=== PATIENT | male | born 1970 | race Two or more races ===

== ENCOUNTER 2025-03-19 18:48 | Emergency (ER) | payer BC, OTHER ==
[~2025-03-19] VITALS: Ht 162.6 cm; Wt 61.1 kg
--- NOTE | 2025-03-19 19:48 | ED.PDOC ---
General HPI Comments 54 year old male came to ER for testicular swelling. Patient states for the past 3 days, he has been having right testicular swelling. Denies any pain or tenderness. Denies any discharge. Denies any urinary symptoms such as dysuria or hematuria. Denies any recent trauma REVIEW OF SYSTEMS: General: No fever, no chills, or fatigue HEENT: No sore throat, no earache, no congestion, no neck pain. Cardiac: No chest pain. No palpitations. Lungs: No shortness of breath, no cough. GI: No nausea, no vomiting, no diarrhea, no constipation, no abdominal pain : No dysuria, frequency, or urgency. No hematuria. (+) right testicular swelling Musculoskeletal: No joint pain , no joint swelling, no extremity edema. Skin: No rash, no itching. Neuro: No headache, no dizziness, no weakness PHYSICAL EXAM: General: Awake, alert and oriented. No acute distress. Skin: Skin in warm, dry and intact without rashes or lesions. HEENT: The head is normocephalic and atraumatic. Conjunctivae are clear without exudates or hemorrhage. Sclera is non-icteric. Neck: Normal range of motion. No JVD. Cardiac: Regular rate Respiratory: No signs of respiratory distress. No Stridor. : Right scrotum indurated, warm, tender. Neurological: The patient is awake, alert and oriented to person, place, and time with normal speech. Speech is clear. Positive facial asymmetry. Normal gait Psychiatric: Appropriate mood and affect. Good judgement and insight. Chief Complaint: Testicle Pain Time Seen by MD: 19:48 Reviewed notes: Nurses Notes Information Source: Patient Mode of Arrival: Ambulatory Severity: Mild Location male: R Scrotum Past Medical History PAST MEDICAL HISTORY: Denies Surgical History: Denies all surgeries Family History Family History: Reviewed,noncontributory to illness Social History Smoker: Non-Smoker Alcohol: Denies ETOH Use Drugs: Denies Drug Use Lives In: Home Was a procedure done? Was a procedure done?: No Differential Diagnosis Kidney stone (Female): N/A Kidney stone (Male): Urolithiasis, Renal infarction, Urinary tract infection Penile/Scrotal: Testicular Torsion, Other Urinary Problem (Male): Epididymitis, Urethritis, Urinary Retention, Urolithiasis, UTI, Other X-Ray, Labs, Meds, VS Vital Signs Date Time Temp Pulse Resp B/P (MAP) Pulse Ox O2 Delivery O2 Flow Rate FiO2 03/19/25 18:49 98.1 111 18 109/82 98 98.1 Lab Test 03/19/25 21:30 Range/Units Urine Color Pending Urine Clarity Pending Urine pH Pending Urine Specific [place] Pending Urine Protein Pending Urine Ketones Pending Urine Blood Pending Urine Nitrite Pending Urine Bilirubin Pending Urine Urobilinogen Pending Urine Leukocyte Esterase Pending Urine RBC Pending Urine Microscopic WBC Pending Urine Squamous Epithelial Cells Pending Urine Bacteria Pending Urine Glucose Pending Chlamydia trachomatis ([facility]) Pending Neisseria gonorrhoeae ([facility]) Pending ULTRASOUND OF SCROTUM AND CONTENTS. INDICATION: Right testicular edema and tenderness COMPARISON: None TECHNIQUE: Multiple real-time grayscale sonographic and color and duplex Doppler images of the scrotum and its contents were obtained. FINDINGS: RIGHT TESTICLE: Measures 4 X 2.2 X 2.6 cm. RIGHT-SIDED HYDROCELE LEFT TESTICLE: Measures 3.9 x 2.6 x 2.6 cm cm. Both testicles demonstrate homogeneous echotexture without evidence of focal lesions. The right epididymal head measures 19 mm. Adjacent to the right epididymis is a complex hypervascular area measuring 1.9 x 2.2 x 4 cm. This may represent epididymitis with the tail of the epididymis. The left epididymal head measures 15.4 mm. A 4 mm cyst in the left epididymis. Subsequent color and duplex Doppler interrogation of the testes demonstrated symmetric normal vascular flow to both testicles. No focal areas of hyperemia were seen. IMPRESSION: 1. No evidence of torsion, epididymitis, and/or orchitis. 2. Complex hypervascular area adjacent to the right epididymis measuring 1.9 x 2.2 x 4 cm. Is consistent with right epididymitis. 3. This could represent a complex right-sided hydrocele. 4. 4 mm left epididymal cyst. Time of 1ST Reevaluation: 19:45 Reevaluation 1ST: Unchanged Patient Education/Counseling: Need For Follow Up Family Education/Counseling: No Family Present SEPSIS Sepsis Screen Date sepsis recognized/suspect: Mar 19, 2025 Time Sepsis recognized/suspect: 1851 Recent Procedure: No On Antibiotic Therapy: No Respiratory Rate >20: No Heart Rate >90: Yes Temp<36 C (96.8 F) or >38.3 C: No SBP <90 or MAP <65 mmHG: No New Acute Mental Status Change: No Is the patient on CPAP, BIPAP,: No Physician Orders Urinalysis (03/19/25 19:46) Testicular Ultrasound (03/19/25 19:46) Chlamydia/Gc Amplification (03/19/25 21:33) Ceftriaxone W Lidocaine (Rocephin W Lido (03/19/25 21:45) Azithromycin Tablet (Zithromax Tablet) (03/19/25 21:45) Levofloxacin Tablet (Levaquin Tablet) (03/19/25 21:45) Vital Signs Date Time Temp Pulse Resp B/P (MAP) Pulse Ox O2 Delivery O2 Flow Rate FiO2 03/19/25 18:49 98.1 111 18 109/82 98 98.1 Departure 1 Departure Time of Disposition: 21:39 Impression: Primary Impression: Epididymitis Disposition: 01 HOME / SELF CARE / HOMELESS Condition: Stable Additional Instructions: ED DISCHARGE INSTRUCTIONS Instructions: Please read all instructions provided in this packet carefully. Although you have been discharged from the Emergency Department, this does not mean that you have a "clean bill of health". No definitive diagnosis for your symptoms has been made today. It is possible that you are in the process of d eveloping a serious illness. This is why you must return to the ED without fail if any new or worsening symptoms (especially if your symptoms include chest pain, trouble breathing, abdominal pain, fever, headache, confusion, trouble seeing, or trouble walking) It is also very important that you see a primary care provider (PCP) within the next 3-5 days to follow up. If you are unable to get an appointment, return to the ED for re-evaluation. Epididymitis What is epididymitis? The epididymis is a long, tightly coiled tube that lies above and behind each testicle. It collects and stores maturing sperm made by the testicles prior to ejaculation. Inflammation and infection of the epididymis is called epididymitis. What causes it? The causes of epididymitis vary depending on your age and behavior. In children it is most commonly associated with urinary tract infections. In young, sexually active males, it is often linked to sexually transmitted infection. And in older males, it is often caused by enlargement of the prostate gland. Epididymitis may be caused by a bacterial infection from having a urinary catheter or after having a urological procedure. And an injury to the groin may cause epididymitis. What are the symptoms? Pain, tenderness, and swelling in the scrotum (epididymides or testicles) that gradually get worse are the most common symptoms of epididymitis. Other symptoms may include fever and chills, frequent or painful urination, or a discharge from the penis. How is it diagnosed? Epididymitis is diagnosed using a physical exam and a medical history. A culture of discharge from the penis is done to check for a bacterial infection, such as a sexually transmitted infection. And a urinalysis and urine culture are done to check for a urinary tract infection. You may also have a blood test or other tests. An ultrasound may be done to look for the cause of swelling. Causes may include problems like torsion of the testicle, an emergency condition that causes loss of blood flow to the testicles and requires urgent surgical treatment. How is epididymitis treated? If it is caused by an infection, epididymitis may be treated with antibiotics. Supportive measures, such as bed rest and anti-inflammatory medicines (such as ibuprofen or ketoprofen), may help relieve discomfort caused by epididymitis. You may also want to elevate your scrotum by rolling up a hand towel and placing it under your scrotum. If epididymitis was caused by a sexually transmitted infection, your sex partner should also be evaluated and treated for a possible infection. e-Prescriptions Levofloxacin Hemihydrate (LEVAQUIN 500 MG) 500 Mg Tab 500 MG PO BID for 10 Days, #19 TAB Prov: YANI EPPS MD 03/19/25 Comments MDM: Patient well-appearing, nontoxic. Advised prompt follow-up with PCP, return to the ED with any new, worsening or concerning symptoms. - I reviewed the following notes from the pt's past medical encounters: N/A The following tests were ordered, and results were reviewed by me: (See diagnostic results section) The following test were independently interpreted by me: N/A Additional information was gathered from interviewing the following independent historians: N/A I reviewed and agreed with the following test results read by other providers: N/A I discussed treatments and results with patient Decision regarding hospitalization or escalation of hospital level of care: Risks and benefits of admission for further treatment of patient's condition was considered however due to patient's stable condition patient will be discharged to follow up closely or return to care for worsening of condition or inability to follow up. Critical Care Note Critical Care Time?: No Stability Stability form required: No Heart Score Heart Score: Heart Score Response (Comments) Value History N/A 0 EKG N/A 0 Age N/A 0 Risk Factors N/A 0 Troponin N/A 0 Total 0 I personally scribed for YANI EPPS MD ([email or web address]) on 03/19/25 at 19:48. Electronically submitted by Pro Barber ([employer]). I personally scribed for YANI EPPS MD ([email or web address]) on 03/19/25 at 19:54. Electronically submitted by Pro Barber ([employer]). I personally scribed for YANI EPPS MD ([email or web address]) on 03/19/25 at 20:53. Electronically submitted by Pro Barber ([employer]). YANI EPPS MD Mar 19, 2025 19:48
--- NOTE | 2025-03-19 20:33 | DVH ---
ULTRASOUND OF SCROTUM AND CONTENTS. INDICATION: Right testicular edema and tenderness COMPARISON: None TECHNIQUE: Multiple real-time grayscale sonographic and color and duplex Doppler images of the scrotu m and its contents were obtained. FINDINGS: RIGHT TESTICLE: Measures 4 X 2.2 X 2.6 cm. RIGHT-SIDED HYDROCELE LEFT TESTICLE: Measures 3.9 x 2.6 x 2.6 cm cm. Both testicles demonstrate homogeneous echotexture without evidence of focal lesions. The right epididymal head measures 19 mm. Adjacent to the right epididymis is a complex hypervascular area measuring 1.9 x 2.2 x 4 cm. This may represent epididymitis with the tail of the epididymis. Th e left epididymal head measures 15.4 mm. A 4 mm cyst in the left epididymis. Subsequent color and duplex Doppler interrogation of the testes demonstrated symmetric normal vascula r flow to both testicles. No focal areas of hyperemia were seen. IMPRESSION: 1. No evidence of torsion, epididymitis, and/or orchitis. 2. Complex hypervascular area adjacent to the right epididymis measuring 1.9 x 2.2 x 4 cm. Is consist ent with right epididymitis. 3. This could represent a complex right-sided hydrocele. 4. 4 mm left epididymal cyst.
[2025-03-19 21:39] VITALS: BP 99/70; PULSE 112; RESP 18; O2SAT 97
[2025-03-19] MEDS ORDERED: LEVO500T91 PO (21:41)
[2025-03-19 21:44] VITALS: TEMP 99
[2025-03-19] MEDS: KETOROLAC TROMETH 30 MG/ML 1ML VIAL IM ONE (21:44)
[2025-03-19] MEDS: ACETAMINOPHEN 325 MG TAB PO ONE (21:44)
[2025-03-19] MEDS: AZITHROMYCIN 250 MG TAB PO ONE (21:50)
[2025-03-19] MEDS: levoFLOXacin 500 MG TAB PO ONE (21:50)
[2025-03-19 21:51] LABS: Urine Protein, UAD 2+ (Negative)
[2025-03-19] MEDS: cefTRIAXone SOD 500 MG VL IM ONE (22:11)
[2025-03-19] MEDS: cefTRIAXone W LIDOCAINE 500 MG IM IM ONE (22:12)
[2025-03-19] MEDS: LIDOCAINE 1% HCL (LOCAL ANESTH.) INJ 20ML MDV IJ ONE (22:12)
[2025-03-22 04:06] LABS: Chlamydia Trachomatis, NAA Negative (Negative); Neisseria gonorrhoeae, NAA Negative (Negative)
== END 2025-03-19 22:20 | disposition home or self-care (01) ==
LOC: ER 18:48
DX: N45.1 Epididymitis (principal)
CPT/HCPCS: 76870; 81001; 87491; 87591; 96372; 99285; J0696; J1885; J2003